=== PATIENT | female | born 2000 | race American Indian/Alaskan Native ===

== ENCOUNTER 2022-01-11 11:53 | Emergency (ER) | payer OTHER ==
--- NOTE | 2022-01-11 17:06 | Emergency Department Report ---
ED Headache HPI - General Chief Complaint: Headache Stated Complaint: HEAD PRESSURE/DIZZY Source: patient Exam Limitations: no limitations - History of Present Illness Initial Comments: Patient is a 21-year-old -[place] female with no past medical history except anxiety presents to the ED with complaint of acute onset persistent pressure-like posterior headache after she accidentally bumped her head against a car meter 24 hours ago. Patient states that afterward she such for her symptoms in global and became anxious with tachycardia and chest tightness. Patient states that she decided come to the ED today because she suspects she may be having more severe injury. Patient however denies nausea and vomiting, dizziness, syncope, change in vision, neck pain, fall, numbness and tingling or weakness of upper and lower extremities bilaterally or abdominal pain, chest pain or shortness of breath at this time. Timing/Duration: 24 hours Quality: mild, achy, pressure Head Injury Location: occipital Recent Head Trauma: no recent headache/trauma Associated Symptoms: denies symptoms. denies: confusion, fatigue, facial pain, fever/chills, flushing, nasal congestion, nasal drainage, numbness in legs/feet, rash, seizures, sinus infection, stiff neck, vision changes, other Home Medications: Ambulatory Orders Ibuprofen [Motrin] 600 mg PO Q8H PRN #30 tablet 01/11/22 hydrOXYzine PAMOATE [Vistaril] 25 mg PO Q8HR PRN #30 capsule 01/11/22 ED Review of Systems ROS: Stated complaint: HEAD PRESSURE/DIZZY Other details as noted in HPI Constitutional: denies: chills, fever Eyes: denies: eye pain, eye discharge, vision change ENT: denies: ear pain, throat pain Respiratory: denies: cough, shortness of breath, wheezing Cardiovascular: denies: chest pain, palpitations Endocrine: no symptoms reported Gastrointestinal: denies: abdominal pain, nausea, vomiting, diarrhea Genitourinary: denies: urgency, dysuria, discharge Musculoskeletal: denies: back pain, joint swelling, arthralgia Skin: denies: rash, lesions Neurological: headache. denies: weakness, paresthesias Psychiatric: denies: anxiety, depression Hematological/Lymphatic: denies: easy bleeding, easy bruising ED Past Medical Hx - Past Medical History Previous Medical History?: Yes Hx Psychiatric Treatment: Yes (Anxiety) - Surgical History Past Surgical History?: No - Social History Smoking Status: Never Smoker - Medications Home Medications: Home Medications Medication Instructions Recorded Confirmed Last Taken Type Ibuprofen [Motrin] 600 mg PO Q8H PRN #30 tablet 01/11/22 Unknown Rx hydrOXYzine PAMOATE [Vistaril] 25 mg PO Q8HR PRN #30 capsule 01/11/22 Unknown Rx ED Physical Exam - General Limitations: No Limitations General appearance: alert, in no apparent distress - Head Head exam: Present: atraumatic, normocephalic, normal inspection - Eye Eye exam: Present: normal appearance, PERRL, EOMI Pupils: Present: normal accommodation - ENT ENT exam: Present: normal exam, normal orophraynx, mucous membranes moist, TM's normal bilaterally, normal external ear exam - Neck Neck exam: Present: normal inspection, full ROM. Absent: tenderness - Respiratory Respiratory exam: Present: normal lung sounds bilaterally. Absent: respiratory distress, wheezes, rales, rhonchi, stridor, chest wall tenderness, accessory muscle use, decreased breath sounds, prolonged expiratory - Cardiovascular Cardiovascular Exam: Present: normal rhythm, tachycardia, normal heart sounds. Absent: systolic murmur, diastolic murmur, rubs, gallop - GI/Abdominal GI/Abdominal exam: Present: soft, normal bowel sounds. Absent: tenderness, guarding, hyperactive bowel sounds, hypoactive bowel sounds, organomegaly, mass - Extremities Exam Extremities exam: Present: normal inspection, full ROM, normal capillary refill. Absent: tenderness - Back Exam Back exam: Present: normal inspection, full ROM. Absent: tenderness, CVA tenderness (R), CVA tenderness (L), muscle spasm, paraspinal tenderness, vertebral tenderness - Neurological Exam Neurological exam: Present: alert, oriented X3, CN II-XII intact, normal gait, reflexes normal - Psychiatric Psychiatric exam: Present: normal affect, normal mood, anxious - Skin Skin exam: Present: warm, dry, intact, normal color. Absent: rash ED Course Vital Signs 01/11/22 14:17 Temperature 98.9 F Pulse Rate 100 H Respiratory 18 Rate Blood Pressure 151/88 O2 Sat by Pulse 99 Oximetry ED Medical Decision Making - Medical Decision Making This is a 21-year-old -[place] female with no past medical history except anxiety presents to the ED with complaint of acute onset persistent pressure-like posterior headache after she accidentally bumped her head against a car meter 24 hours ago. Patient states that afterward she such for her symptoms in global and became anxious with tachycardia and chest tightness. Patient states that she decided come to the ED today because she suspects she may be having more severe injury. In the ED, patient is alert and oriented x3 and is not in any distress, anxious and tachycardic but afebrile in triage. Patient the history and physical exam findings, patient has not exhibited any neurological symptoms but is driven by anxiety thinking that her symptoms have worsened. Patient was discharged home on medications for headache and advised to follow-up with her primary care physician in 7 to 10 days for reevaluation. Patient advised return to the ED immediately if symptoms get worse. - Differential Diagnosis Scalp contusion; tension headache; anxiety; Critical care attestation.: If time is entered above; I have spent that time in minutes in the direct care of this critically ill patient, excluding procedure time. ED Disposition Clinical Impression: Anxiety as acute reaction to exceptional stress Contusion of scalp Qualifiers: Encounter type: initial encounter Qualified Code(s): S00.03XA - Contusion of scalp, initial encounter Tension type headache, unspecified Qualifiers: Headache chronicity pattern: acute headache Intractability: not intractable Qualified Code(s): G44.209 - Tension-type headache, unspecified, not intractable Disposition: 01 HOME / SELF CARE / HOMELESS Is pt being admited?: No Does the pt Need Aspirin: No Condition: Stable Instructions: Facial or Scalp Contusion, [id number], Tension Headache, Adult, [id number], Generalized Anxiety Disorder, Adult Additional Instructions: Your injuries do not meet criteria for any imaging test at this time. Therefore take medication as advised, drink plenty of fluids and follow-up with your primary care physician in 7 to 10 days for reevaluation. Return to the ED immediately if symptoms get worse. Prescriptions: Ibuprofen [Motrin] 600 mg PO Q8H PRN #30 tablet PRN Reason: Pain hydrOXYzine PAMOATE [Vistaril] 25 mg PO Q8HR PRN #30 capsule PRN Reason: Anxiety Referrals: [facility] [Provider Group] - 7-10 days Time of Disposition: 17:07 Print Language: KOSOV[place]
[2022-01-11] MEDS ORDERED: ACETAMINOPHEN 325 MG TAB PO ONE (19:00)
[2022-01-11] MEDS ORDERED: IBUPROFEN 600 MG TAB PO ONE (19:00)
[2022-01-11 19:10] VITALS: BP 125/86
== END 2022-01-11 19:09 | disposition home or self-care (01) ==
LOC: ED 11:53
DX: S00.03XA Contusion of scalp, initial encounter (principal); F41.1 Generalized anxiety disorder; F43.0 Acute stress reaction; G44.209 Tension-type headache, unspecified, not intractable; W20.8XXA Other cause of strike by thrown, projected or falling object, initial encounter; Y93.89 Activity, other specified; Y92.89 Other specified places as the place of occurrence of the external cause; Y99.8 Other external cause status
CPT/HCPCS: 99282

== ENCOUNTER 2022-01-15 14:47 | Emergency (ER) | payer OTHER ==
[2022-01-15 16:43] VITALS: BP 147/79
== END 2022-01-15 20:25 | disposition left against medical advice (07) ==
LOC: ED 14:47
DX: R42 Dizziness and giddiness (principal); Z53.21 Procedure and treatment not carried out due to patient leaving prior to being seen by health care provider